=== PATIENT | male | born 1965 | race African-American/Black ===

== ENCOUNTER 2023-12-24 14:23 | Inpatient (IN) | payer OTHER ==
[2023-12-24 17:43] VITALS: BMI 24.6
[2023-12-24] MEDS ORDERED: NICOTINE POLACRILEX 2 MG GUM BUC PRN (18:16)
[2023-12-24] MEDS ORDERED: MAGNESIUM HYDROX 2400MG/30ML ORAL SUSPENSION 30 ML CUP PO PRN (18:16)
[2023-12-24] MEDS ORDERED: LOPERAMIDE HCL 2 MG CAPSULE PO PRN (18:16)
[2023-12-24] MEDS ORDERED: NICOTINE POLACRILEX 2 MG LOZENGE BC PRN (18:16)
[2023-12-24] MEDS ORDERED: DICYCLOMINE HCL 10 MG CAPSULE PO PRN (18:16)
[2023-12-24] MEDS ORDERED: BENZOCAINE/MENTHOL (CHLORASEPTIC ) LOZENGE MM PRN (18:16)
[2023-12-24] MEDS ORDERED: BISMUTH SUBSALICYLATE 524 MG/30 ML PO PRN (18:16)
[2023-12-24] MEDS ORDERED: guaiFENesin 600 MG TABLET.ER (FP) PO PRN (18:16)
[2023-12-24] MEDS ORDERED: POLYETHYLENE GLYCOL (HEALTHYLAX) 3350 17 GM PACKET PO PRN (18:16)
[2023-12-24] MEDS ORDERED: ONDANSETRON *ODT* 4 MG TABLET SL PRN (18:16)
[2023-12-24] MEDS ORDERED: IBUPROFEN 400 MG TABLET (FP) PO PRN (18:16)
[2023-12-24] MEDS ORDERED: P-EPHED 60MG/TRIPROLIDI 2.5MG TABLET PO PRN (18:16)
[2023-12-24] MEDS ORDERED: BENZONATATE 200 MG CAPSULE PO PRN (18:16)
[2023-12-24] MEDS ORDERED: ACETAMINOPHEN 325 MG TABLET (FP) PO PRN (18:16)
[2023-12-24] MEDS ORDERED: IBUPROFEN 600 MG TABLET (FP) PO PRN (18:16)
[2023-12-24] MEDS: THIAMINE 100 MG TABLET PO SCH (22:44)
[2023-12-24] MEDS: MELATONIN 5 MG TABLETS PO SCH (22:44)
[2023-12-25] MEDS: METHOCARBAMOL 500 MG TABLET PO PRN (07:52)
[2023-12-25] MEDS: hydrOXYzine PAMOATE 25 MG CAPSULE (FP) PO PRN (07:52)
[2023-12-25] MEDS ORDERED: LORazepam 1 MG TABLET PO PRN (09:34)
[2023-12-25] MEDS: LORazepam 2 MG TABLET PO SCH (10:48)
[2023-12-25] MEDS: PRENATAL VITAMINS W/ FOLIC ACID TABLET (FP) PO SCH (10:48)
[2023-12-25] MEDS: cloNIDine HCL 0.1 MG TABLET PO ONE (11:05)
[2023-12-25 11:40] LABS: HEMATOCRIT 38.1 % (35.4-49); HEMOGLOBIN 12.3 GM/dL (11.7-16.9); MCH 25.1 pg (25.7-33.7); MCHC 32.2 g/dl (32.0-35.9); MEAN PLT VOLUME 8.1 fl (7.5-11.1); PLATELET COUNT 283 10^3/uL (134-434); RBC 4.88 M/mm3 (4.00-5.60); RDW 17.3 % (11.9-15.9); WHITE BLOOD COUNT 6.3 K/mm3 (4.0-10.0)
[2023-12-25 11:41] LABS: CHLORIDE 105 mmol/L (98-107); SODIUM 137 mmol/L (136-145)
[2023-12-25 11:44] LABS: ALBUMIN 3.7 g/dl (3.4-5.0); ANION GAP 7 mmol/L (4-13); BLOOD UREA NITROGEN 12.3 mg/dL (7-18); CO2 26 mmol/L (21-32); GLUCOSE,RANDOM 100 mg/dL (74-106)
[2023-12-25 11:47] LABS: CALCIUM 9.1 mg/dL (8.5-10.1); SGOT/AST 22 U/L (15-37); SGPT/ALT 22 U/L (13-61)
[2023-12-25 11:48] LABS: BILIRUBIN,TOTAL 0.5 mg/dL (0.2-1)
[2023-12-25 11:49] LABS: TOT PROT 7.5 g/dl (6.4-8.2)
[2023-12-25 11:50] LABS: ALK PHOS 70 U/L (45-117)
[2023-12-25] MEDS: amLODIPine BESYLATE 10 MG TABLET (FP) PO SCH (12:27)
[2023-12-25] MEDS: traZODone HCL 50 MG TABLET (FP) PO SCH (22:48)
[2023-12-26] MEDS: cloNIDine HCL 0.1 MG TABLET PO PRN (17:03)
[2023-12-26] MEDS: MAG HYDROX/AL HYDROX/SIMETH 30 ML UNIT-DOSE CUP PO PRN (22:57)
[2023-12-27] MEDS: LORazepam 1 MG TABLET PO SCH (06:00)
[2023-12-27 09:34] VITALS: RESP 18
[2023-12-27 13:11] VITALS: BP 112/92; PULSE 77; TEMP 97.5
[2023-12-28] MEDS ORDERED: LORazepam 0.5 MG TABLET PO PRN
[2023-12-28] MEDS ORDERED: LORazepam 0.5 MG TABLET PO SCH (05:00)
[2023-12-29] MEDS ORDERED: LORazepam 0.5 MG TABLET PO ONE (05:00)
== END 2023-12-27 13:34 | disposition left against medical advice (07) | DRG 770 ==
LOC: YASAS 14:23 → Y3N 18:34
PROVIDERS: ADMIT Allergy & Immunology; ATTEND Surgery
PROC: HZ2ZZZZ Detoxification Services for Substance Abuse Treatment (ICD-10-PCS; principal; 2023-12-24)
DX: F10.230 Alcohol dependence with withdrawal, uncomplicated (principal); F14.20 Cocaine dependence, uncomplicated; F17.210 Nicotine dependence, cigarettes, uncomplicated; F19.282 Other psychoactive substance dependence with psychoactive substance-induced sleep disorder; G47.00 Insomnia, unspecified; I10 Essential (primary) hypertension; Z89.512 Acquired absence of left leg below knee; Z89.511 Acquired absence of right leg below knee
CPT/HCPCS: 36415; 80053; 80305; 80307; 85027; 86780; 93005; 93010